=== PATIENT | female | born 1985 | race Two or more races ===

== ENCOUNTER 2021-11-10 09:31 | Emergency (ER) | payer SELFPAY ==
[~2021-11-10] VITALS: Ht 157.5 cm; Wt 81.6 kg
[2021-11-10 10:52] VITALS: BP 154/78
[2021-11-10] MEDS ORDERED: PRED20TA2 PO (12:32)
[2021-11-10] MEDS ORDERED: ALBUAER3 IN (12:32)
[2021-11-10] MEDS ORDERED: AMOX-277 PO (12:32)
== END 2021-11-10 12:43 | disposition home or self-care (01) ==
LOC: ER 09:31
DX: U07.1 COVID-19 (principal); J06.9 Acute upper respiratory infection, unspecified
CPT/HCPCS: 36415; 71045; 81025; 87426

== ENCOUNTER 2024-06-17 17:21 | Emergency (ER) | payer MEDICAID, OTHER ==
[~2024-06-17] VITALS: Ht 157.5 cm; Wt 91.5 kg
[~2024-06-17 17:21] MED LIST: ALBUAER3 IN; AMOX875T4 PO; PRED20TA2 PO
[2024-06-17 18:18] LABS: Urine Bacteria None Seen /hpf (None Seen)
[2024-06-17 18:49] LABS: Urine Blood 2+ /uL (Negative); Urine Clarity Clear (Clear); Urine Color Light-Yellow (Yellow); Urine Protein, UAD Negative (Negative); Urine Urobilinogen Normal (Negative); Urine WBC 4 /hpf (0 - 5)
[2024-06-17 19:07] LABS: Basophils # (auto) 0 10 ^3/uL (0-0.2); Basophils % (auto) 0.4 % (0.0-2.0); Eosinophils # (auto) 0.1 10 ^3/uL (0-0.8); Eosinophils % (auto) 1.2 % (0.0-7.0); Hematocrit 38.2 % (36.0-46.0); Hemoglobin 13.4 g/dL (12.2-16.2); Lymphocytes # (auto) 3.6 10 ^3/uL (0.4-5.4); Lymphocytes % (auto) 42.9 % (10.0-50.0); Mean Corpuscular Hemoglobin 32.3 pg (28.0-32.0); Mean Corpuscular Hgb Conc. 35.1 g/dL (32.0-36.0); Monocytes # (auto) 0.5 10 ^3/uL (0-1.3); Monocytes % (auto) 5.6 % (0.0-12.0); Neutrophils # (auto) 4.2 10 ^3/uL (1.6-8.6); Neutrophils % (auto) 49.9 % (37.0-80.0); Nucleated Red Blood Cells % 0.1 %; Red Blood Cells 4.16 10^6/uL (4.0-5.20); Red Cell Distribution Width 13.3 % (11.8-14.3); White Blood Cell 8.4 10^3/uL (4.4-10.8)
[2024-06-17 20:23] VITALS: BP 145/82; PULSE 76; RESP 16; TEMP 98.1; O2SAT 100
== END 2024-06-17 20:24 | disposition home or self-care (01) ==
LOC: ER 17:21
DX: N93.8 Other specified abnormal uterine and vaginal bleeding (principal); R10.2 Pelvic and perineal pain; R42 Dizziness and giddiness; Z88.6 Allergy status to analgesic agent
CPT/HCPCS: 36415; 81001; 84702; 85025